=== PATIENT | male | born 1990 | race Caucasian/White ===

== ENCOUNTER 2017-02-22 20:54 | Emergency (ER) | payer MEDICAID, OTHER ==
[2017-02-22 21:12] VITALS: BP 132/80; PULSE 90; RESP 18; TEMP 97.5; O2SAT 95
--- NOTE | 2017-02-22 21:23 | UCPHY ---
H & P Patient Type: Established HPI/ROS: CHIEF COMPLAINT: Right ankle pain. HISTORY OF PRESENT ILLNESS: The patient is a 26 year old male presenting with an acute right ankle injury. The patient was walking down the movie aisle and stepped into the gap between the his aisle and row in front of him. His ankle twisted and he fell. The patient is able to ambulate, however it is painful. Pain is moderate to severe. He also has developed pain in the inner aspecdt of the thigh and calf as well over time. He was able to ambulate. States he has an 'odd arch' as noted by Podiatry about 8-10 yrs ago, doing well since. No able to WB, but moderate pain. REVIEW OF SYSTEMS: Constitutional: felt well prior Musculoskeletal: as above. Skin: No rashes. Neurological: No headache. Past Medical/Surgical History: Denies. Social History: Single. Lives in [place]. Smoking Status: Current every day smoker Physical Exam: General Appearance: Alert, no distress. Afebrile. Normal phonation. No respiratory distress. holding his ankle fully plantar flexed and toes extended , it is unclear if this is the normal position for his foot at rest. Neurological: Ox3. No motor weakness. Sensation intact. Antalgic. Skin: Warm and dry, no rashes. Musculoskeletal: No clear swellingh to he ankle of foot when I place the foot in a neutral poistion, nontender over the navicular per se, some over the lateral but not the medial malleoli. Negative compression test. Extremities: No edema. He is tender to light touch over the medial thigh as well as the calf, though there is not STS or edema or ecchymosis - perhpas a faint eryhtema. Psychiatric: Normal affect. Constitutional: Initial Vital Signs Temperature (C) 36.4 C 02/22/17 21:10 Heart Rate 90 02/22/17 21:10 Respiratory Rate 18 02/22/17 21:10 Blood Pressure 132/80 H 02/22/17 21:10 O2 Sat (%) 95 02/22/17 21:10 O2 Delivery Mode Room Air Home Medications: Medication Instructions Recorded NK [No Known Home Meds] 02/22/17 Medical Decision Making - Diagnostics Imaging: Study: X-ray of the right ankle was obtained. Results: No fracture. Images were interpreted by the radiologist, Dr. Rodas. I viewed the images myself on the PACS system. Study: X-ray of the right foot was obtained. Results: No fracture. Images were interpreted by the radiologist, Dr. Rodas. I viewed the images myself on the PACS system. ED Course/Re-evaluation: The patient presents with acute ankle pain from an injury prior to arrival. On exam, patient's right foot angulates inward. Plan to x-ray the ankle and foot.. X-rays are negative for fracture by my as well as Radiologists read. I will place patient in an ankle brace. He was given crutches as an orthopedic followup. Differential Diagnosis: The differential diagnosis includes but is not limited to: Fracture, Sprain, Strain, Nerve injury, Dislocation. Departure - Departure Disposition: Home, Routine, Self-Care Clinical Impression: Strain of adductor muscle, fascia and tendon of right thigh, initial encounter Ankle sprain Qualifiers: Encounter type: initial encounter Involved ligament of ankle: unspecified ligament Laterality: right Qualified Code(s): S93.401A - Sprain of unspecified ligament of right ankle, initial encounter Condition: Good Instructions: Ankle Sprain (ED) Additional Instructions: Use crutches as needed. Weight bear as tolerated. No driving as this involves your right leg I recommend 600mg Ibuprofen every 6-8 hours. Rest, Ice, and Elevate the ankle when possible. If your pain does not improve after 1 week, followup with the referred orthopedic surgeon. Referrals: Omar Church MD [Medical Doctor] - As per Instructions - PQRS PQRS Measurement: NA Report Scribed for: Darian Ventura Report Scribed by: Steff Graham Date of Report: 02/22/17 Time of Report: 21:23
== END 2017-02-22 22:20 | disposition home or self-care (01) ==
LOC: CED 20:54
DX: S93.401A Sprain of unspecified ligament of right ankle, initial encounter (principal); W19.XXXA Unspecified fall, initial encounter; Y92.26 Movie house or cinema as the place of occurrence of the external cause
CPT/HCPCS: 73610-PO; 73630-PO; G0463-PO; L4350

== ENCOUNTER 2017-02-23 22:32 | Emergency (ER) | payer MEDICAID, OTHER ==
--- NOTE | 2017-02-23 22:49 | UCPHY ---
H & P Patient Type: Established Chief Complaint Nursing Narrative: R ankle/foot injury yesterday, and was seen here last evening. no fracture noted at that time. is now here with worsening pain in R ankle/foot and also in upper/mid back. also has N/T now. Time Seen by Provider: 02/23/17 22:34 HPI/ROS: CHIEF COMPLAINT: Right ankle pain HISTORY OF PRESENT ILLNESS: the patient is a 26-year-old healthy man who comes to the Urgent Care complaining of continued right ankle pain. He was seen here yesterday afternoon. He states that he twisted his ankle stepping out of the theater. His foot when a between cracks of the chairs. He was seen yesterday and had negative ankle x-rays and foot x-rays. States that his pain has continued and is starting to be tingly and cold. He was fit with a air ankle brace and crutches. REVIEW OF SYSTEMS: Constitutional: denies: chills, fever, recent illness, recent injury EENTM: denies: blurred vision, double vision, nose congestion Respiratory: denies: cough, shortness of breath Cardiac: denies: chest pain, irregular heart rate, lightheadedness, palpitations Gastrointestinal/Abdominal: denies: abdominal pain, diarrhea, nausea, vomiting, blood streaked stools Genitourinary: denies: dysuria, frequency, hematuria, pain Musculoskeletal: See HPI Skin: denies: lesions, rash, jaundice, bruising Neurological: denies: headache, numbness, paresthesia, tingling, dizziness, weakness Hematologic/Lymphatic: denies: blood clots, easy bleeding, easy bruising Immunologic/allergic: denies: HIV/AIDS, transplant EXAM: GENERAL: Well-appearing, well-nourished and in no acute distress. HEAD: Atraumatic, normocephalic. EYES: Pupils equal round and reactive to light, extraocular movements intact, sclera anicteric, conjunctiva are normal. ENT: TMs normal, nares patent, oropharynx clear without exudates. Moist mucous membranes. NECK: Normal range of motion, supple without lymphadenopathy or JVD. LUNGS: Breath sounds clear to auscultation bilaterally and equal. No wheezes rales or rhonchi. HEART: Regular rate and rhythm without murmurs, rubs or gallops. ABDOMEN: Soft, nontender, normoactive bowel sounds. No guarding, no rebound. No masses appreciated. BACK: No CVA tenderness, no spinal tenderness, step-offs or deformities EXTREMITIES: Right ankle with severe medial rotation. Appears dislocated. Strong pulses and normal sensation. Not cold to touch. NEUROLOGICAL: Cranial nerves II through XII grossly intact. Normal speech, normal gait. 5/5 strength, normal movement in all extremities, normal sensation PSYCH: Normal mood, normal affect. SKIN: Warm, dry, normal turgor, no visible rashes or lesions. Source: Patient Exam Limitations: No limitations - Personal History Current Tetanus Diphtheria and Acellular Pertussis (TDAP): Yes Tetanus Vaccine Date: within last 10 years - Medical/Surgical History Hx Asthma: No Hx Chronic Respiratory Disease: No Hx Diabetes: No Hx Cardiac Disease: No Hx Renal Disease: No Hx Cirrhosis: No Hx Alcoholism: No Hx HIV/AIDS: No Hx Splenectomy or Spleen Trauma: No Other PMH: denies - Family History Significant Family History: No pertinent family hx - Social History Smoking Status: Current every day smoker Alcohol Use: Sober Drug Use: None Constitutional: Initial Vital Signs Temperature (C) 36.8 C 02/23/17 22:43 Heart Rate 75 02/23/17 22:43 Respiratory Rate 16 02/23/17 22:43 Blood Pressure 143/98 H 02/23/17 22:43 O2 Sat (%) 95 02/23/17 22:43 O2 Delivery Mode Room Air Allergies/Adverse Reactions: venom-honey bee Allergy (Intermediate, Verified 02/23/17 22:41) Home Medications: Medication Instructions Recorded NK [No Known Home Meds] 02/22/17 Medical Decision Making ED Course/Re-evaluation: I reviewed the patient's x-rays from yesterday with Dr. Andre Gardiner. He confirms that there are no acute fractures or dislocations. The patient has a deformed foot that is new. It is different than his left foot. He does have pulses and sensation. I suspect a tendon rupture versus occult fracture dislocation. I will transfer him to the emergency department for MRI. I discussed the case with Dr. Gladys Scott who agrees. Have called an ambulance for transfer. He is requesting pain medication prior to leaving. Differential Diagnosis: Differential diagnosis includes but is not limited to: Ankle fracture, dislocation, vascular injury, nerve injury, muscle spasm, tendon injury - Data Points Medications Given: Discontinued Medications Hydromorphone HCl (Dilaudid) 1 mg IVP EDNOW ONE Stop: 02/23/17 22:52 Last Admin: 02/23/17 23:07 Dose: Not Given Departure - Departure Disposition: [facility] Clinical Impression: Ankle injury Qualifiers: Encounter type: initial encounter Laterality: right Qualified Code(s): S99.911A - Unspecified injury of right ankle, initial encounter Condition: Fair Referrals: NONE *PRIMARY CARE P,. [Primary Care Provider] - As per Instructions - PQRS PQRS Measurement: Not applicable
[2017-02-23] MEDS ORDERED: IBUPROFEN 600 MG TAB PO ONE (23:05)
[2017-02-23] MEDS: HYDROmorphONE/DILAUDID 1 MG/ML SYR IVP ONE (23:07)
[2017-02-23] MEDS: IBUPROFEN SUSP 100 MG/5 ML UDCUP PO ONE (23:25)
[2017-02-23 23:54] VITALS: RESP 20
--- NOTE | 2017-02-24 00:38 | EDPHY ---
H & P Time Seen by Provider: 02/23/17 22:34 HPI/ROS: HPI The patient presents with right ankle and foot pain which has been present since yesterday after an injury. He was leaving a movie theater and tripped and fell down about 3 feet. He landed on his right ankle. He had pain immediately which was sharp and radiated throughout his foot. He was seen at [facility] yesterday and had x-rays done which were unremarkable. He was placed in a splint and given crutches. He returned today because of continued pain. He was transferred to the ER for further diagnostic imaging. He does report that he is also having thoracic back pain. REVIEW OF SYSTEMS Constitutional: No fever, no chills. Musculoskeletal: + back pain. Skin: No rashes. Neurological: No headache. PMHx: Recent right ankle injury PHYSICAL General Appearance: Alert, no distress Eyes: Pupils equal and round no pallor or injection ENT, Mouth: Mucous membranes moist Respiratory: There are no retractions, lungs are clear to auscultation Cardiovascular: Regular rate and rhythm Back: He has mild tenderness of his thoracic spine throughout as well as paraspinals of the thoracic spine Neurological: A&O, moves all extremities Skin: Warm and dry, no rashes Musculoskeletal: Neck is supple non tender Extremities: Right ankle is edematous and diffusely tender to palpation with joint effusion, ankle is held in plantar flexion and supination Psychiatric: Patient is oriented X 3, there is no agitation Source: Patient, Old records Exam Limitations: No limitations - Personal History Current Tetanus Diphtheria and Acellular Pertussis (TDAP): Yes Tetanus Vaccine Date: within last 10 years - Medical/Surgical History Hx Asthma: No Hx Chronic Respiratory Disease: No Hx Diabetes: No Hx Cardiac Disease: No Hx Renal Disease: No Hx Cirrhosis: No Hx Alcoholism: No Hx HIV/AIDS: No Hx Splenectomy or Spleen Trauma: No Other PMH: denies - Family History Significant Family History: No pertinent family hx - Social History Smoking Status: Current every day smoker Constitutional: Initial Vital Signs Temperature (C) 36.8 C 02/23/17 22:43 Heart Rate 75 02/23/17 22:43 Respiratory Rate 16 02/23/17 22:43 Blood Pressure 143/98 H 02/23/17 22:43 O2 Sat (%) 95 02/23/17 22:43 O2 Delivery Mode Room Air Allergies/Adverse Reactions: venom-honey bee Allergy (Intermediate, Verified 02/23/17 22:41) Home Medications: Medication Instructions Recorded NK [No Known Home Meds] 02/22/17 Medical Decision Making - Diagnostics Imaging: MRI R ankle/foot: Subluxation of the calcaneocuboid and talonavicular articulation without definite fracture, discussed with Dr. Barker of Radiology, I have reviewed the images myself. CT R ankle/foot: Subluxation of the calcaneocuboid and talonavicular joints, discussed with Dr. Barker of Radiology, I have reviewed the images myself. Procedures: SPLINT Procedure: Splint placement. A ortho glass posterior short-leg splint was applied to the right leg by the tech. After application of the splint I returned and re-examined the patient. The splint was adequately immobilizing the joint and distal to the splint the patient's circulation and sensation was intact. Differential Diagnosis: This is a 26-year-old male who presents after injury yesterday to his right ankle with a fall of about 3 feet. He had plain films done which were unremarkable but comes in for continued pain. He has obvious deformity of his foot raising suspicion for occult fracture or dislocation. Other possibilities include ankle sprain. In the emergency room, MRI was performed which showed subluxation of the calcaneo-cuboid. Because of this unusual finding, the case was discussed with the orthopedist ed educational aide, Dr. Prabhjot Maxwell. He was able to review the patient' s MRI and agrees that he does have a subluxation at the calcaneo-cuboid concerning for dislocation as well as injury to distal peroneal tendon. I have explained this finding to the patient. He will be placed in a posterior short-leg splint with continued crutches and instructions for rice. He is to call Dr. Maxwell office this morning for follow-up later today. - Data Points Medications Given: Discontinued Medications Acetaminophen (Tylenol) 1,000 mg PO EDNOW ONE Stop: 02/24/17 02:12 Last Admin: 02/24/17 02:11 Dose: 1,000 mg Hydrocodone Bitart/Acetaminophen ([place] 5/325mg Prepack#6) 1 btl TAKEHOME EDNOW ONE Stop: 02/24/17 04:31 Last Admin: 02/24/17 04:32 Dose: 1 btl Hydromorphone HCl (Dilaudid) 1 mg IVP EDNOW ONE Stop: 02/23/17 22:52 Last Admin: 02/23/17 23:07 Dose: Not Given Ibuprofen (Motrin Oral Solution) 600 mg PO EDNOW ONE Stop: 02/23/17 23:22 Last Admin: 02/23/17 23:25 Dose: 600 mg Departure - Departure Disposition: Home, Routine, Self-Care Clinical Impression: Subluxation of foot Qualifiers: Encounter type: initial encounter Laterality: right Qualified Code(s): S93.301A - Unspecified subluxation of right foot, initial encounter Condition: Good Instructions: Hydrocodone/Acetaminophen (By mouth), Splint Care (ED) Additional Instructions: Please follow-up with Dr. Maxwell today. You should call his clinic to be seen. Please do not put any weight on the ankle. Referrals: Prabhjot Maxwell MD [Medical Doctor] - As per Instructions
[2017-02-24] MEDS ORDERED: ACETAMINOPHEN 500 MG TAB ONE (02:09)
[2017-02-24] MEDS: ACETAMINOPHEN 500 MG TAB PO ONE (02:11)
[2017-02-24] MEDS ORDERED: HYDROCOD/APAP 5/325 PREPACK#6 BTL TAKEHOME ONE (04:17)
[2017-02-24 04:30] VITALS: BP 145/89; PULSE 80; TEMP 98.4; O2SAT 96
[2017-02-24] MEDS: HYDROCOD/APAP 5/325 PREPACK#6 BTL TAKEHOME ONE (04:32)
[2017-02-25] MEDS ORDERED: fentaNYL 100 MCG/2 ML INJ ONE (15:36)
[2017-02-25] MEDS ORDERED: LIDOCAINE 2% 100 MG/5 ML SYR ONE (15:36)
[2017-02-25] MEDS ORDERED: DEXAMETHASONE 4 MG/ML VIAL ONE (15:36)
[2017-02-25] MEDS ORDERED: ONDANSETRON 4 MG/2 ML VIAL ONE (15:36)
[2017-02-25] MEDS ORDERED: PROPOFOL 200 MG/20 ML VIAL ONE (15:36)
[2017-02-25] MEDS ORDERED: KETOROLAC 30 MG/1 ML SDV ONE (16:59)
== END 2017-02-24 04:33 | disposition home or self-care (01) ==
LOC: CED 22:32
PROC: 2W3QX1Z Immobilization of Right Lower Leg using Splint (ICD-10-PCS; principal; 2017-02-23)
DX: S93.301A Unspecified subluxation of right foot, initial encounter (principal); F17.200 Nicotine dependence, unspecified, uncomplicated; W01.0XXA Fall on same level from slipping, tripping and stumbling without subsequent striking against object, initial encounter
CPT/HCPCS: G0463-PO; J1100; J1170; J1885; J2001; J2405; J2704; J3010

== ENCOUNTER 2017-02-25 14:35 | Day surgery (SDC) | payer MEDICAID ==
[2017-02-25] MEDS ORDERED: LR 1,000 ML IV ONE (15:40)
[2017-02-25] MEDS ORDERED: MIDAZOLAM 2 MG/2 ML VIAL ONE (16:39)
[2017-02-25] MEDS ORDERED: fentaNYL 100 MCG/2 ML INJ ONE (17:16)
[2017-02-25] MEDS ORDERED: HYDROCODONE/APAP 5/325 TAB ONE ×2 (17:37→18:36)
--- NOTE | 2017-02-26 02:30 | GOP ---
[f rep st] OPERATIVE REPORT DATE OF OPERATION: 02/25/2017 SURGEON: Prabhjot Maxwell MD OIL WELL DRILLING MANAGER: Mendel Downey SA. ANESTHESIA: General. PREOPERATIVE DIAGNOSIS: Right ankle sprain, calcaneocuboid sprain, and foot dystonia. POSTOPERATIVE DIAGNOSIS: Right ankle sprain, calcaneocuboid sprain, and foot dystonia. PROCEDURE PERFORMED: Closed reduction of right calcaneocuboid and talonavicular joints with splint application. FINDINGS: SPECIMENS: None. ESTIMATED BLOOD LOSS: 0 mL. INDICATIONS: This is a 26-year-old male, who sustained an inversion injury to his foot and ankle. He had been seen in the urgent care, and then presented back to the emergency room with more pain an d a foot deformity. X-rays were done as well as an MRI and CT. He did have subluxation of the felix sverse tarsal joints and the subtalar joint was reduced. When I saw him in clinic, I felt he had li gamentous injuries to both his lateral ankle ligaments and calcaneal ligament, so his most pressing issue was his foot dystonia. He appeared to be having acute traumatic dystonic reaction as well as symptoms consistent with possible CPRS. He was sensitive to light touch. His foot was really shira d in maximal plantar flexion and inversion when I saw him in clinic, and this foot position was real ly quite unacceptable. It wound have been impossible to reduce him in the clinic, given the amount of pain and sensitivity he was having. I counseled him on the risks and benefits of a closed reduct ion versus an open reduction, if there is ligamentous tissue blocking the reduction of the calcaneoc uboid joint, and possible ligamentous repair. DESCRIPTION OF PROCEDURE: Informed consent obtained. All questions were answered. He was marked p reoperatively. We discussed risks including need for the open reduction, need for further surgery, the difficulty of treating dystonic reaction including potentially poor outcomes of people with dyst onic reactions from traumatic events, CPRS, which I think he possibly already has or may be developi ng, nerve injury, recurrence of the deformity, need for physical therapy after this, need for furthe r immobilization, and elected to proceed. Informed consent obtained. All questions were answered, and marked preoperatively. He was taken to the operative suite and anesthesia was induced. Time-ou t was performed, verifying the site, side, location, and all in agreement with the team. Then, we close reduced his CC joint and talonavicular joint bimanually, and ended up getting the jacinta t into dorsiflexion and eversion. I took x-rays documenting this. I then placed him in a well-padd ed splint while holding him in dorsiflexion and eversion. We were able to hold this position before he woke up, and this kept his foot in a plantigrade position. He was taken to recovery room in sta ble condition. COMPLICATIONS: None. DRAINS: None. CONDITION: Stable. PLAN: I plan on seeing him in 9 days. We will likely get him into a boot at that point, to keep hi m in a plantar grade position and possibly a cast, and get him started in therapy. /[id number]/MODL
== END 2017-02-25 19:15 | disposition home or self-care (01) ==
LOC: FSGY 14:35
PROVIDERS: ATTEND Orthopaedic Surgery
PROC: 0SS Lower Joints, Reposition (ICD-10-PCS; principal; 2017-02-25 16:00)
DX: S93.401A Sprain of unspecified ligament of right ankle, initial encounter (principal); W19.XXXA Unspecified fall, initial encounter; Y92.26 Movie house or cinema as the place of occurrence of the external cause
CPT/HCPCS: J2250; J3010

== ENCOUNTER 2017-03-13 21:08 | Emergency (ER) | payer MEDICAID ==
[2017-03-13] MEDS ORDERED: NS 1,000 ML IV ONE ×3 (21:14→23:06)
[2017-03-13] MEDS ORDERED: IOPAMIDOL (ISOVUE 370) 100 ML BTL IV ONE (21:17)
--- NOTE | 2017-03-13 21:18 | CPEKG ---
Heart Rate: 112 RR Interval: 536 P-R Interval: 148 QRSD Interval: 98 QT Interval: 340 QTC Interval: 464 P [place]: 42 QRS [place]: 136 T Wave [place]: -3 EKG Severity - ABNORMAL ECG - EKG Impression: SINUS TACHYCARDIA EKG Impression: RIGHT AXIS DEVIATION EKG Impression: NONSPECIFIC T ABNORMALITIES, INFERIOR LEADS Electronically Signed By: Orlando Larson 14-Mar-2017 12:47:32
--- NOTE | 2017-03-13 21:19 | EDPHY ---
General Narrative: CHIEF COMPLAINT: Chest Pain HISTORY OF PRESENT ILLNESS: Chest pain this started around 12:30 p.m. today. This is a retrosternal central chest pain. Radiates to the back. Worse with inspiration and movement. No nausea or diaphoresis. Some shortness of breath. Some discomfort overall and feeling anxious. He has a recent injury to the right lower extremity involving the extensor tendons and cuboid bone. He has been in a Bret boot for this and had a 1st physical therapy visit this morning. The pain started soon after this. It has been constant in duration. Steadily worsening from mild to severe. No known DVT. No recent travel. No other associated complaints or modifying factors. REVIEW OF SYSTEMS: Ten systems reviewed and are negative unless otherwise noted in the HPI EXAMINATION: General Appearance: Alert, no distress. Anxious Head: normocephalic, atraumatic Eyes: Pupils equal and round, no conjunctival pallor or injection ENT, Mouth: Mucous membranes moist. Uvula midline. No erythema edema. Neck: Normal inspection, supple, non-tender Respiratory: Scattered rhonchi. No diminishment. No consolidation. No distress. No crackles. Cardiovascular: Tachycardic rate. Regular rhythm. No murmur. Gastrointestinal: Abdomen is soft and nontender Neurological: A&O, nonfocal Skin: Warm and dry, no rash Extremities: Tenderness to palpation of the right lower extremity over the foot and calf. There is no pain with passive dorsiflexion of the foot. No palpable cords. Psychiatric: Mood and affect normal DIFFERENTIAL DIAGNOSES: Including but not limited to in no particular order: Acute Chest Pain, ACS, Stable Angina, Pneumonia, PE, duodenitis, gastritis, esophagitis, GERD MDM: 9:15 p.m. Chest pain that started this afternoon around 12 30. Patient has a recent injury to the right lower extremity and was at physical therapy this morning. Pain started after this. He is tachycardic and tachypneic on examination. I have ordered stat CT scan angio of the chest To rule out PE. He is not hypotensive or hypoxic. He does appear anxious but is in no acute distress. 9:50 p.m. Notified by radiologist Dr. Trevino. No abnormality on the CT scan of the chest. Specifically no PE. Patient's laboratory studies reveal mild leukocytosis and some transaminitis. Potassium is slightly low. We will continue with IV fluid resuscitation as he does appear hemoconcentrated. Additionally we will provide IV Toradol. I discussed the case with Dr. Yoder, he will evaluate the patient. 10:50 p.m. Patient is feeling better after the GI cocktail. He is still anxious and fidgety mom in the room with him. He informed me that he has been going through a lot with the injury of the leg and other stressors at home. He feels that this is contributing. He specifically denies suicidal or homicidal ideation, the feels that he may be somewhat depressed from this. He has a primary care physician and was supposed to see today but missed the appointment because he did not have his wallet. He is asking for a new primary care physician referral and I will provide this for him. He is to follow up with them as soon as possible. Also try prescription of hydroxyzine for the possible anxiety component of this. He is comfortable with this plan and discharged home stable condition. I informed him of the mildly elevated liver enzymes, I recommend they follow up with primary care physician that he establishes with to monitor this. EKG: Interpreted by Dr. Yoder Sinus tachycardia without acute ischemia. SUPERVISION: Patient was evaluated in conjunction with the supervising physician. Please see their note for details. - Diagnostics Imaging Results: Imaging Impressions Chest/Thorax CTA 03/13/17 21:14 Impression: 1. Normal CT scan of the chest 2. No evidence for pulmonary embolic disease. Findings and recommendations discussed with Leon Santos at 2150 hour, 03/13. Final report concurs with initial preliminary interpretation. - History Smoking Status: Current every day smoker - Objective Vital Signs: Initial Vital Signs Temperature (C) 97.7 F 03/13/17 21:21 Heart Rate 124 H 03/13/17 21:21 Respiratory Rate 38 H 03/13/17 21:21 Blood Pressure 141/95 H 03/13/17 21:21 O2 Sat (%) 97 03/13/17 21:21 O2 Delivery Mode Nasal Cannula O2 (L/minute) 2 Allergies/Adverse Reactions: No Known Allergies Allergy (Unverified 03/13/17 21:20) Home Medications: Medication Instructions Recorded Zofran Odt 03/13/17 hydrOXYzine HCL [Hydroxyzine HCl] 50 mg PO Q6-8PRN PRN #14 tablet 03/13/17 oxyCODONE IR 03/13/17 traMADol 03/13/17 Laboratory Results: Laboratory Results 03/13/17 21:17 03/13/17 21:17 03/13/17 03/13/17 03/13/17 21:17 21:17 21:17 WBC 10.59 10^3/uL H 10^3/uL (3.80-9.50) RBC 6.35 10^6/uL 10^6/uL (4.40-6.38) Hgb 18.9 g/dL H g/dL (13.7-17.5) POC Hgb Hct 54.5 % H % (40.0-51.0) POC Hct MCV 85.8 fL fL (81.5-99.8) MCH 29.8 pg pg (27.9-34.1) MCHC 34.7 g/dL g/dL (32.4-36.7) RDW 12.0 % % (11.5-15.2) Plt Count 289 10^3/uL 10^3/uL (150-400) MPV 10.5 fL fL (8.7-11.7) Neut % (Auto) 49.1 % % (39.3-74.2) Lymph % (Auto) 39.5 % % (15.0-45.0) Cotton % (Auto) 9.3 % % (4.5-13.0) Eos % (Auto) 1.1 % % (0.6-7.6) Baso % (Auto) 0.7 % % (0.3-1.7) Nucleat RBC Rel Count 0.0 % % (0.0-0.2) Absolute Neuts (auto) 5.21 10^3/uL 10^3/uL (1.70-6.50) Absolute Lymphs (auto) 4.18 10^3/uL H 10^3/uL (1.00-3.00) Absolute Monos (auto) 0.98 10^3/uL H 10^3/uL (0.30-0.80) Absolute Eos (auto) 0.12 10^3/uL 10^3/uL (0.03-0.40) Absolute Basos (auto) 0.07 10^3/uL 10^3/uL (0.02-0.10) Absolute Nucleated RBC 0.00 10^3/uL 10^3/uL (0-0.01) Immature Gran % 0.3 % % (0.0-1.1) Immature Gran # 0.03 10^3/uL 10^3/uL (0.00-0.10) PT 11.7 SEC L SEC (12.0-15.0) INR 0.87 (0.83-1.16) APTT 30.3 SEC SEC (23.0-38.0) POC Sodium Sodium 143 mEq/L mEq/L (134-144) POC Potassium Potassium 3.7 mEq/L mEq/L (3.5-5.2) POC Chloride Chloride 99 mEq/L mEq/L (97-110) Carbon Dioxide 24 mEq/l mEq/l (22-31) Anion Gap 20 mEq/L H mEq/L (8-16) POC BUN BUN 13 mg/dL mg/dL (7-23) Creatinine 1.0 mg/dL mg/dL (0.7-1.3) POC Creatinine Estimated GFR > 60 Glucose 82 mg/dL mg/dL (70-100) POC Glucose Calcium 10.3 mg/dL mg/dL (8.5-10.4) Total Bilirubin 0.9 mg/dL mg/dL (0.1-1.4) Conjugated Bilirubin 0.6 mg/dL H mg/dL (0.0-0.5) Unconjugated Bilirubin 0.3 mg/dL mg/dL (0.0-1.1) AST 69 IU/L H IU/L (17-59) ALT 178 IU/L H IU/L (21-72) Alkaline Phosphatase 139 IU/L H IU/L (38-126) Troponin I < 0.012 ng/mL ng/mL (0-0.034) Total Protein 8.9 g/dL H g/dL (6.3-8.2) Albumin 5.4 g/dL H g/dL (3.5-5.0) Lipase 106.0 IU/L IU/L (23-300) 03/13/17 21:09 WBC RBC Hgb POC Hgb 19.0 gm/dL H gm/dL (14.5-17.3) Hct POC Hct 56 % H % (42.8-50.6) MCV MCH MCHC RDW Plt Count MPV Neut % (Auto) Lymph % (Auto) Cotton % (Auto) Eos % (Auto) Baso % (Auto) Nucleat RBC Rel Count Absolute Neuts (auto) Absolute Lymphs (auto) Absolute Monos (auto) Absolute Eos (auto) Absolute Basos (auto) Absolute Nucleated RBC Immature Gran % Immature Gran # PT INR APTT POC Sodium 141 mEq/L mEq/L (134-144) Sodium POC Potassium 3.1 mEq/L L mEq/L (3.3-5.0) Potassium POC Chloride 101 mEq/L mEq/L (96-108) Chloride Carbon Dioxide Anion Gap POC BUN 13 mg/dL mg/dL (7-23) BUN Creatinine POC Creatinine 1.0 mg/dL mg/dL (0.8-1.5) Estimated GFR Glucose POC Glucose 87 mg/dL mg/dL (70-100) Calcium Total Bilirubin Conjugated Bilirubin Unconjugated Bilirubin AST ALT Alkaline Phosphatase Troponin I Total Protein Albumin Lipase Medications Given: Discontinued Medications Al Hydroxide/Mg Hydroxide (Maalox Susp) 30 ml PO ONCE ONE Stop: 03/13/17 22:05 Last Admin: 03/13/17 22:18 Dose: 30 ml Hyoscyamine Sulfate (Levsin, Hyomax-Sl) 0.25 mg PO ONCE ONE Stop: 03/13/17 22:05 Last Admin: 03/13/17 22:18 Dose: 0.25 mg Sodium Chloride (Ns) 1,000 mls @ 0 mls/hr IV ONCE ONE PRN Reason: Wide Open Stop: 03/13/17 21:15 Last Admin: 03/13/17 21:50 Dose: 1,000 mls Sodium Chloride (Ns) 1,000 mls @ 0 mls/hr IV ONCE ONE PRN Reason: Wide Open Stop: 03/13/17 21:57 Last Admin: 03/13/17 22:18 Dose: 1,000 mls Ketorolac Tromethamine (Toradol) 30 mg IVP EDNOW ONE Stop: 03/13/17 21:57 Last Admin: 03/13/17 22:18 Dose: 30 mg Lidocaine (Lidocaine 2% Viscous) 15 ml PO ONCE ONE Stop: 03/13/17 22:05 Last Admin: 03/13/17 22:18 Dose: 15 ml Lorazepam (Ativan Injection) 1 mg IVP EDNOW ONE Stop: 03/13/17 21:51 Last Admin: 03/13/17 21:51 Dose: 1 mg Point of Care Test Results: 03/13/17 21:09 POC Sodium 141 POC Potassium 3.1 L POC Chloride 101 POC BUN 13 POC Creatinine 1.0 POC Glucose 87 Departure - Departure Disposition: Home, Routine, Self-Care Clinical Impression: Tachycardia, Abnormal liver function test, Anxiety Chest pain Qualifiers: Chest pain type: unspecified Qualified Code(s): R07.9 - Chest pain, unspecified Condition: Good Instructions: Anxiety (ED), Chest Pain (ED) Additional Instructions: Hydroxyzine as prescribed as needed. Contact primary care physician for follow- up. Contact your orthopedic physician regarding the leg pain. Return to the ER for return or worsening of any symptoms Referrals: Patient,NotPresent [Unknown] - As per Instructions Tata Soto MD [Medical Doctor] - As per Instructions Prescriptions: hydrOXYzine HCL [Hydroxyzine HCl] 50 mg PO Q6-8PRN PRN #14 tablet PRN Reason: Itching
[2017-03-13 21:21] LABS: % IMMATURE GRANULYOCYTES 0.3 % (0.0-1.1); ABSOLUTE IMMATURE GRANULOCYTES 0.03 10^3/uL (0.00-0.10); ADD DIFF? NO; ADD MORPH? NO; ADD SCAN? NO; ATYPICAL LYMPHOCYTE FLAG 10 (0-99); FRAGMENT RBC FLAG 0 (0-99); HEMATOCRIT 54.5 % (40.0-51.0); HEMOGLOBIN 18.9 g/dL (13.7-17.5); LEFT SHIFT FLG 0 (0-99); LIPEMIA HEMOLYSIS FLAG 90 (0-99); MEAN CELL HEMOGLOBIN 29.8 pg (27.9-34.1); MEAN CELL HEMOGLOBIN CONCENTR. 34.7 g/dL (32.4-36.7); MEAN CELL VOLUME 85.8 fL (81.5-99.8); MEAN PLATELET VOLUME 10.5 fL (8.7-11.7); PLATELET CLUMPS FLAG 0 (0-99); PLATELET COUNT 289 10^3/uL (150-400); RED BLOOD CELL COUNT 6.35 10^6/uL (4.40-6.38)
[2017-03-13 21:24] VITALS: TEMP 97.7
[2017-03-13 21:33] LABS: INR 0.87 (0.83-1.16); PROTIME(PATIENT) 11.7 SEC (12.0-15.0)
[2017-03-13] MEDS ORDERED: LORazepam 2 MG/ML INJ ONE (21:33)
[2017-03-13 21:34] LABS: APTT 30.3 SEC (23.0-38.0)
[2017-03-13 21:46] LABS: ALANINE AMINOTRANSFERASE 178 IU/L (21-72); ALBUMIN 5.4 g/dL (3.5-5.0); ALKALINE PHOSPHATASE 139 IU/L (38-126); ANION GAP 20 mEq/L (8-16); ASPARTATE AMINOTRANSFERASE 69 IU/L (17-59); BILIRUBIN,TOTAL 0.9 mg/dL (0.1-1.4); BILIRUBIN-CONJUGATED 0.6 mg/dL (0.0-0.5); BILIRUBIN-UNCONJUGATED 0.3 mg/dL (0.0-1.1); CALCIUM 10.3 mg/dL (8.5-10.4); CARBON DIOXIDE 24 mEq/l (22-31); CHLORIDE 99 mEq/L (97-110); GLOMERULAR FILTRATION RATE > 60; GLUCOSE 82 mg/dL (70-100); POTASSIUM 3.7 mEq/L (3.5-5.2); SODIUM 143 mEq/L (134-144); TOTAL PROTEIN 8.9 g/dL (6.3-8.2)
[2017-03-13] MEDS ORDERED: LORazepam 2 MG/ML INJ IVP ONE (21:50)
[2017-03-13] MEDS ORDERED: KETOROLAC 30 MG/1 ML SDV IVP ONE (21:56)
[2017-03-13 21:58] LABS: TROPONIN I < 0.012 ng/mL (0-0.034)
[2017-03-13] MEDS ORDERED: HYOSCYAMINE SULFATE 0.125 MG TAB PO ONE (22:04)
[2017-03-13] MEDS ORDERED: LIDOCAINE 2% VISCOUS 15 ML UDCUP PO ONE (22:04)
[2017-03-13] MEDS ORDERED: MAG HYDROX/AL HYDROX/SIMETH 30 ML UDCUP PO ONE (22:04)
[2017-03-13] MEDS ORDERED: MIDAZOLAM 2 MG/2 ML VIAL ONE ×2 (23:04)
[2017-03-13] MEDS ORDERED: MIDAZOLAM 10 MG/2 ML VIAL IVP ONE (23:06)
[2017-03-14 01:37] VITALS: BP 114/64; PULSE 86; RESP 16; O2SAT 96
== END 2017-03-14 01:36 | disposition home or self-care (01) ==
LOC: EDUNIT#
DX: F41.9 Anxiety disorder, unspecified (principal); R94.5 Abnormal results of liver function studies; F17.200 Nicotine dependence, unspecified, uncomplicated
CPT/HCPCS: 82947-QW; 96374; J1885; J2060; J2250; Q9967

== ENCOUNTER 2017-04-18 22:08 | Emergency (ER) | payer MEDICAID ==
--- NOTE | 2017-04-18 22:11 | EDPHY ---
H & P HPI/ROS: HPI CHIEF COMPLAINT: Multiple contusions, fall HISTORY OF PRESENT ILLNESS: This patient very pleasant 26-year-old male, he presents emergency room after he states he became nauseous and felt lightheaded after inhaled some fumes in his work space after people were cleaning his floors. 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 No very lightheaded he did not pass out. He did fall. He landed on his left knee and right wrist right elbow. Denies head strike. Denies neck pain or headache. Denies LOC. Denies chest pain or shortness of breath. Did arrive by ambulance since arriving he does feel better. He does complain of right elbow pain, right wrist pain, left knee pain. Past Medical History: No significant medical history Past Surgical History: Denies recent surgical history Social History: Denies daily use of drugs alcohol tobacco products Family History: Noncontributory ROS REVIEW OF SYSTEMS: A comprehensive 10 point review of systems is otherwise negative aside from elements mentioned in the history of present illness. Exam Constitutional triage nursing summary reviewed, vital signs reviewed, awake/ alert. Eyes normal conjunctivae and sclera, EOMI, PERRLA. HENT normal inspection, atraumatic, moist mucus membranes, no epistaxis, neck supple/ no meningismus, no raccoon eyes. Respiratory clear to auscultation bilaterally, normal breath sounds, no respiratory distress, no wheezing. Cardiovascular rate normal, regular rhythm, no murmur, no edema, distal pulses normal. Gastrointestinal soft, non-tender, no rebound, no guarding, normal bowel sounds, no distension, no pulsatile mass. Genitourinary no CVA tenderness. Musculoskeletal right arm: Neurovascular intact good pulse, warm extremity, good cap refill, tender palpation over the posterior elbow, tender palpation over lateral ulnar styloid wrist region, and metacarpal. No signs of swelling or ecchymosis. Hand good playground attendant strength, neurovascular intact warm extremity good cap refill. Full range of motion of the elbow joint, full range of motion at the wrist. Left knee: Tender palpation over the patella anteriorly. Otherwise unremarkable distally neurovascular intact. no midline vertebral tenderness, full range of motion, no calf swelling, no tenderness of extremities, no meningismus, good pulses, neurovascularly intact. Skin pink, warm, & dry, no rash, skin atraumatic. Neurologic awake, alert and oriented x 3, AAOx3, moves all 4 extremities equally, motor intact, sensory intact, CN II-XII intact, normal cerebellar, normal vision, normal speech. Psychiatric normal mood/affect. Heme/Lymph/Immune no lymphadenopathy. Differential Diagnosis: Includes but is not limited to in a particular order multiple bony abnormalities. Multiple contusions, fractures, fracture of the elbow, fracture of the wrist, fracture of the hand, soft tissue injury, acute nausea vomiting and diarrhea from inhalation irritant. Medical Decision Making: Plan for this patient x-ray right elbow, x-ray right wrist, x-ray right hand, x-ray left knee, EKG. Ibuprofen 800 mg order, Zofran 4 mg ordered. Re-evaluation: EKG interpretation by me on record in [email or web address] system. Impression time of EKG 2238: This is sinus rhythm rate of 85, no acute ischemic changes. No signs of cardiac arrhythmia. No signs of WPW or Brugada. Of the x-ray of the right elbow, right wrist, right hand, left knee her unremarkable for acute trauma. Patient be placed in a Velcro wrist splint for comfort. Ibuprofen for pain control. EKG reviewed is normal. Vital signs are stable. Patient ambulated well throughout the emergency room without any difficulty. No nausea vomiting chest pain shortness of breath feels well. Source: Patient, EMS - Personal History Tetanus Vaccine Date: within last 10 years - Medical/Surgical History Hx Asthma: No Hx Chronic Respiratory Disease: No Hx Diabetes: No Hx Cardiac Disease: No Hx Renal Disease: No Hx Cirrhosis: No Hx Alcoholism: No Hx HIV/AIDS: No Hx Splenectomy or Spleen Trauma: No Other PMH: denies - Social History Smoking Status: Current every day smoker Constitutional: Initial Vital Signs Temperature (C) 36.7 C 04/18/17 22:16 Heart Rate 88 04/18/17 22:16 Respiratory Rate 18 04/18/17 22:16 Blood Pressure 140/94 H 04/18/17 22:16 O2 Sat (%) 95 04/18/17 22:16 O2 Delivery Mode Room Air Allergies/Adverse Reactions: No Known Allergies Allergy (Unverified 03/13/17 21:20) Home Medications: Medication Instructions Recorded Zofran Odt 03/13/17 hydrOXYzine HCL [Hydroxyzine HCl] 50 mg PO Q6-8PRN PRN #14 tablet 03/13/17 oxyCODONE IR 03/13/17 traMADol 03/13/17 Ibuprofen [Motrin (*)] 800 mg PO Q6-8PRN #7 tab 04/18/17 Medical Decision Making - Diagnostics Imaging Results: Imaging Impressions Elbow X-Ray 04/18/17 22:15 Impression: No acute osseous abnormality. RIGHT WRIST (4 Views, at 10:28 PM): The growth plates are fused. Bone mineralization is normal. There is no acute fracture or dislocation. There is no ulnar variance. The navicular is intact. If there is a high clinical concern regarding an occult fracture, conservative management and short-term repeat radiographic follow-up in 7-14 days is suggested. Impression: There is no acute osseous abnormality identified. RIGHT HAND (3 Views, at 10:32 PM): There is no acute fracture or dislocation. The fifth finger is intact. There is no radiopaque foreign body. Impression: There is no acute osseous abnormality identified. LEFT KNEE (5 Views, at 10:35 PM): Bone mineralization is preserved. There is no fracture, dislocation, suprapatellar joint effusion, or loose osteochondral body. There is no patellofemoral joint space narrowing, tilting, or subluxation. Impression: There is no acute osseous abnormality. Hand X-Ray 04/18/17 22:15 Impression: No acute osseous abnormality. RIGHT WRIST (4 Views, at 10:28 PM): The growth plates are fused. Bone mineralization is normal. There is no acute fracture or dislocation. There is no ulnar variance. The navicular is intact. If there is a high clinical concern regarding an occult fracture, conservative management and short-term repeat radiographic follow-up in 7-14 days is suggested. Impression: There is no acute osseous abnormality identified. RIGHT HAND (3 Views, at 10:32 PM): There is no acute fracture or dislocation. The fifth finger is intact. There is no radiopaque foreign body. Impression: There is no acute osseous abnormality identified. LEFT KNEE (5 Views, at 10:35 PM): Bone mineralization is preserved. There is no fracture, dislocation, suprapatellar joint effusion, or loose osteochondral body. There is no patellofemoral joint space narrowing, tilting, or subluxation. Impression: There is no acute osseous abnormality. Knee X-Ray 04/18/17 22:15 Impression: No acute osseous abnormality. RIGHT WRIST (4 Views, at 10:28 PM): The growth plates are fused. Bone mineralization is normal. There is no acute fracture or dislocation. There is no ulnar variance. The navicular is intact. If there is a high clinical concern regarding an occult fracture, conservative management and short-term repeat radiographic follow-up in 7-14 days is suggested. Impression: There is no acute osseous abnormality identified. RIGHT HAND (3 Views, at 10:32 PM): There is no acute fracture or dislocation. The fifth finger is intact. There is no radiopaque foreign body. Impression: There is no acute osseous abnormality identified. LEFT KNEE (5 Views, at 10:35 PM): Bone mineralization is preserved. There is no fracture, dislocation, suprapatellar joint effusion, or loose osteochondral body. There is no patellofemoral joint space narrowing, tilting, or subluxation. Impression: There is no acute osseous abnormality. Wrist X-Ray 04/18/17 22:15 Impression: No acute osseous abnormality. RIGHT WRIST (4 Views, at 10:28 PM): The growth plates are fused. Bone mineralization is normal. There is no acute fracture or dislocation. There is no ulnar variance. The navicular is intact. If there is a high clinical concern regarding an occult fracture, conservative management and short-term repeat radiographic follow-up in 7-14 days is suggested. Impression: There is no acute osseous abnormality identified. RIGHT HAND (3 Views, at 10:32 PM): There is no acute fracture or dislocation. The fifth finger is intact. There is no radiopaque foreign body. Impression: There is no acute osseous abnormality identified. LEFT KNEE (5 Views, at 10:35 PM): Bone mineralization is preserved. There is no fracture, dislocation, suprapatellar joint effusion, or loose osteochondral body. There is no patellofemoral joint space narrowing, tilting, or subluxation. Impression: There is no acute osseous abnormality. - Data Points Medications Given: Discontinued Medications Ibuprofen (Motrin) 800 mg PO EDNOW ONE Stop: 04/18/17 22:17 Last Admin: 04/18/17 22:40 Dose: 800 mg Ondansetron HCl (Zofran Odt) 4 mg PO EDNOW ONE Stop: 04/18/17 22:17 Last Admin: 04/18/17 22:40 Dose: 4 mg Departure - Departure Disposition: Home, Routine, Self-Care Clinical Impression: Multiple contusions Condition: Good Instructions: Contusion in Adults (ED), Wrist Sprain (ED) Additional Instructions: 1. Recommend you ice your elbow and wrist. 2. Take ibuprofen for pain control. 3. Return emergency room if you have any worsening symptoms questions or concerns. Referrals: Patient,NotPresent [Unknown] - As per Instructions Prescriptions: Ibuprofen [Motrin (*)] 800 mg PO Q6-8PRN #7 tab
[2017-04-18] MEDS ORDERED: ONDANSETRON DISINTEGRATING 4 MG TAB PO ONE (22:16)
[2017-04-18] MEDS ORDERED: IBUPROFEN 200 MG TAB PO ONE (22:16)
[2017-04-18 22:18] VITALS: RESP 18; TEMP 98.1
--- NOTE | 2017-04-18 22:41 | CPEKG ---
Heart Rate: 85 RR Interval: 706 P-R Interval: 164 QRSD Interval: 96 QT Interval: 364 QTC Interval: 433 P Avilla: 47 QRS Avilla: 125 T Wave Avilla: 8 EKG Severity - ABNORMAL ECG - EKG Impression: SINUS RHYTHM EKG Impression: LEFT POSTERIOR FASCICULAR BLOCK Electronically Signed By: Jeison Yoder 19-Apr-2017 06:53:33
[2017-04-18 23:37] VITALS: BP 137/88; PULSE 78; O2SAT 96
== END 2017-04-18 23:39 | disposition home or self-care (01) ==
LOC: EDUNIT#
DX: S80.02XA Contusion of left knee, initial encounter (principal); F17.200 Nicotine dependence, unspecified, uncomplicated; S60.211A Contusion of right wrist, initial encounter; S50.01XA Contusion of right elbow, initial encounter; W19.XXXA Unspecified fall, initial encounter; Y99.0 Civilian activity done for income or pay
CPT/HCPCS: L3908

== ENCOUNTER 2018-08-26 10:57 | Emergency (ER) | payer OTHER ==
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
[2018-08-26] MEDS ORDERED: CYCLOBENZAPRINE 10 MG TAB PO ONE (13:07)
[2018-08-26] MEDS ORDERED: IBUPROFEN 600 MG TAB PO ONE (13:09)
[2018-08-26 13:24] VITALS: BP 121/80
== END 2018-08-26 14:07 | disposition home or self-care (01) ==
DX: S16.1XXA Strain of muscle, fascia and tendon at neck level, initial encounter (principal); S46.911A Strain of unspecified muscle, fascia and tendon at shoulder and upper arm level, right arm, initial encounter; S76.011A Strain of muscle, fascia and tendon of right hip, initial encounter; V43.52XA Car driver injured in collision with other type car in traffic accident, initial encounter
CPT/HCPCS: L0172

== ENCOUNTER 2018-09-02 10:09 | Emergency (ER) | payer OTHER ==
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
[2018-09-02] MEDS ORDERED: methylPREDNISolone SOD SUCC 125 MG/2 ML VIAL IVP ONE (10:36)
[2018-09-02] MEDS ORDERED: LIDOCAINE 4%/MENTHOL 1% PATCH TD ONE (11:12)
[2018-09-02] MEDS ORDERED: IOPAMIDOL (ISOVUE 370) 100 ML BTL IV ONE (11:52)
[2018-09-02 15:36] VITALS: BP 127/92
[2018-09-02] MEDS ORDERED: PATCH REMOVAL 1 EA PATCH TD SCH (21:00)
== END 2018-09-02 15:36 | disposition home or self-care (01) ==
PROC: 3E0233Z Introduction of Anti-inflammatory into Muscle, Percutaneous Approach (ICD-10-PCS; principal; 2018-09-02)
DX: M43.06 Spondylolysis, lumbar region (principal); H93.11 Tinnitus, right ear; V43.02XA Car driver injured in collision with other type car in nontraffic accident, initial encounter; Y92.410 Unspecified street and highway as the place of occurrence of the external cause; Y99.8 Other external cause status
CPT/HCPCS: 82435-PO; 82565-PO; 82947-PO; 84132-PO; 84295-PO; 84520-PO; 85014-PO; J2930; Q9967

== ENCOUNTER → 2018-10-07 | Outpatient (CLI) | payer OTHER | LOC: FIMAGING 10:06 | PROVIDERS: ATTEND Family Medicine | DX: R74.8 Abnormal levels of other serum enzymes (principal); K76.0 Fatty (change of) liver, not elsewhere classified ==

== ENCOUNTER 2018-12-15 16:05 | Emergency (ER) | payer OTHER ==
[2018-12-15 17:56] VITALS: BP 157/108
[2018-12-15] MEDS ORDERED: oxyCODONE IR 5 MG TAB PO ONE (18:45)
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
[2018-12-17] MEDS ORDERED: PROPOFOL/EMULSION 500 MG/50 ML BOTTLE IV ONE (09:38)
[2018-12-17] MEDS ORDERED: ONDANSETRON 4 MG/2 ML VIAL ONE (09:50)
[2018-12-17] MEDS ORDERED: fentaNYL 100 MCG/2 ML INJ ONE (09:50)
[2018-12-17] MEDS ORDERED: DEXAMETHASONE 4 MG/ML VIAL ONE (09:50)
[2018-12-17] MEDS ORDERED: PHENYLEPHRINE HCL 100 MCG/ML SYR ONE (10:30)
== END 2018-12-15 18:55 | disposition home or self-care (01) ==
DX: M54.41 Lumbago with sciatica, right side (principal)
CPT/HCPCS: J1100; J2370; J2405; J2704; J3010